=== PATIENT | male | born 1940 | race Caucasian/White ===

== ENCOUNTER 2019-12-23 16:21 | Outpatient (CLI) | payer OTHER, SELFPAY | END 2019-12-23 16:22 | disposition home or self-care (01) | LOC: SPT 16:21 | PROVIDERS: PCP Family Medicine; Visit Provider Podiatrist Foot & Ankle Surgery | DX: Z46.89 Encounter for fitting and adjustment of other specified devices (principal); G57.60 Lesion of plantar nerve, unspecified lower limb | CPT/HCPCS: L3100 ==

== ENCOUNTER → 2020-04-07 13:02 | Outpatient (BNVA) | payer OTHER, SELFPAY | PROVIDERS: PCP Family Medicine; Visit Provider Podiatrist Foot & Ankle Surgery | DX: G57.61 Lesion of plantar nerve, right lower limb (principal); M77.31 Calcaneal spur, right foot | CPT/HCPCS: 73630 ==

== ENCOUNTER 2021-01-11 09:26 | Outpatient (CLI) | payer OTHER, SELFPAY ==
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
== END 2021-01-11 09:27 | disposition home or self-care (01) ==
LOC: RADWPI 09:30
PROVIDERS: PCP Family Medicine; Visit Provider Podiatrist Foot & Ankle Surgery
DX: S00.85XA Superficial foreign body of other part of head, initial encounter (principal); X58.XXXA Exposure to other specified factors, initial encounter
CPT/HCPCS: 70030

== ENCOUNTER → 2021-01-19 13:22 | Outpatient (BNVA) | payer OTHER, SELFPAY | PROVIDERS: PCP Family Medicine; Visit Provider Orthopaedic Surgery | DX: M25.511 Pain in right shoulder (principal); M19.011 Primary osteoarthritis, right shoulder | CPT/HCPCS: 73030 ==

== ENCOUNTER 2021-01-19 14:23 | Outpatient (CLI) | payer OTHER, SELFPAY ==
--- NOTE | 2021-01-19 15:00 | CT_ITS ---
WS: [id number] CT RIGHT SHOULDER, NONCONTRAST. HISTORY: M25.511 - Pain in right shoulder Technique: All CT scans at [facility] use at least one of these dose optimization techniq ues: automated exposure control; mA and/or kV adjustment per patient size (includes targeted exams wh ere dose is matched to clinical indication); or iterative reconstruction. DLP: 1613.40 mGy-cm. COMPARISON: None available. Mild AC joint hypertrophy. Very slight impingement upon the anterior supraspinatus muscle. Severe eric rowing of the glenohumeral joint. Subchondral cystic changes and fissuring in the cortex of the humer al head and glenoid along with osteophytic ridging. Large subchondral cystic changes in the humeral h ead. Calcific density in the distal supraspinatus tendon. There is an additional 11 mm calcific densi ty near the axillary pouch. Large cystic mass with multiple septations and loculations medial to the glenohumeral joint measures 4.3 x 4.4 cm. This predominantly involves the subscapularis tendon. Mild atrophy of the supraspinatus muscle. Subcentimeter RIGHT thyroid nodules. Visualized RIGHT upper lung is clear. CT/CT shoulder RT wo con* [id number] IMPRESSION: 1. Severe degenerative changes to the glenohumeral joint with osteophytic ridg ing and loss of the cartilage. 2. Lobulated cystic mass associated with the distal subscapularis tendon. 3. Mild supraspinatus atrophy. 4. Mild AC joint arthritis. 5. Calcific tendinitis and an additional calcified loose body in the axillary pouch.
== END 2021-01-19 14:24 | disposition home or self-care (01) ==
LOC: RAD 14:25
PROVIDERS: PCP Family Medicine; Visit Provider Orthopaedic Surgery
DX: M75.31 Calcific tendinitis of right shoulder (principal); M13.811 Other specified arthritis, right shoulder; R22.31 Localized swelling, mass and lump, right upper limb
CPT/HCPCS: 73200

== ENCOUNTER → 2021-01-26 16:32 | Outpatient (BNVA) | payer OTHER, SELFPAY | PROVIDERS: PCP Family Medicine; Visit Provider Orthopaedic Surgery | DX: Z01.812 Encounter for preprocedural laboratory examination (principal); Z20.822 Contact with and (suspected) exposure to COVID-19 | CPT/HCPCS: 87635 ==

== ENCOUNTER → 2021-01-26 | Day surgery (SDC) | payer OTHER, SELFPAY | PROVIDERS: PCP Family Medicine; Visit Provider Orthopaedic Surgery | DX: Z01.818 Encounter for other preprocedural examination (principal) | CPT/HCPCS: 93005 ==

== ENCOUNTER 2021-02-01 16:29 | Observation (INO) | payer OTHER, SELFPAY ==
--- NOTE | 2021-01-26 09:38 | ECG_ITS ---
[facility] Test Date: 2021-01-26 Pat Name: Uri August Department: Room: Gender: Male City [employer]rier: : 1940 Requested By: Meghan Sanchez Order Number: [id number] Reading MD: BROCK FISHER Measurements Intervals [place] Rate: 65 P: 16 DC: 149 QRS: -1 QRSD: 117 T: 45 QT: 373 QTc: 389 Interpretive Statements SINUS RHYTHM POSSIBLE LATERAL MYOCARDIAL INFARCTION [30 ms Q WAVE IN I/aVL/V5/V6], OF INDETERMINATE AGE POSSIBLE INFERIOR MYOCARDIAL INFARCTION [30 ms Q WAVE IN II/aVF], OF INDETERMINATE AGE Compared to ECG 08/09/2019 14:03:14 Myocardial infarct finding now present Intraventricular conduction delay no longer present Electronically Signed On 01-26-2021 20:18:37 CDT by BROCK FISHER [id number]
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
[2021-02-01] VITALS (12 sets, daily range): BP systolic 92–131; BP diastolic 66–78; PULSE 69–95; RESP 13–20; TEMP 36.2–37.1; O2SAT 92–97
[2021-02-01] MEDS: gabapentin 300 mg Capsule PO (09:41)
[2021-02-01] MEDS: CELEcoxib 200 mg Capsule 400 MG PO (09:42)
[2021-02-01] MEDS: oxyCODONE 20 mg ER (12 HR) Tablet PO (09:51)
[2021-02-01] MEDS: sodium chloride 0.9% 1,000 ML 30 ML IV (10:05)
--- NOTE | 2021-02-01 11:00 | P.ANESUD_ITS ---
Pre-Anesthetic Update Pre-Anesthetic Assessment: Date of Surgery/Procedure: 02/01/21 Preop Reba gnosis: Osteoarthritis Right shoulder Proposed Procedure: Operation Date: 02/01/21 12:05 Proposed Procedures p Total Shoulder Arthroplasty Right 29972 M19.011(Right) - Rafal Brothers MD Any changes to Pre-Anesthetic Assessment?: No Last Intake: Intake Last Liquid Date 01/31/21 Last Liquid Time 18:00 Last Solid Date 01/31/21 Last Solid Time 18:00 Vitals: Temperature 98.1 F 02/01/21 09:31 Temperature Source Temporal Artery S can 02/01/21 09:31 Pulse Rate 69 02/01/21 09:31 Respiratory Rate 18 02/01/21 09:31 Blood Pressure 131/78 02/01/21 09:31 Blood Pressure Julia n 95 02/01/21 09:31 Pulse Oximetry 95 02/01/21 09:31 Oxygen Delivery Me thod 02/01/21 09:31 Exam: Pre-Anes Outpt Exam: alert, oriented x 3, clear to auscultation bilaterally and regular rate & rhythm Cardiac Studies: No Data to Display
--- NOTE | 2021-02-01 11:00 | ANES.PROC ---
Anesthesia Procedures Procedure/Date: 02/01/21 Nerve Block ^: Nerve Block 1: Main Anesthesia: general anesthesia Time Out Performed: Yes Consent: requested by attending/covering physician, from patient, risks and benefits reviewed and patient agrees to proceed Nerve block location: interscalene (R) Anesthesia monitors applied: pulse oximetry, EKG, BP cuff and oxygen Anesthetic Used: ropivicaine 0.5% and with decadron (3 mg) Amount of anesthesia used (mL): 29 Ultrasound used to: visualize and ID brachial plexus and visualize and ID interscalene groove Nerve Stimulator Used?: No Interscalene/Femoral BLK: 2 stimuplex 22 g needle used for position and inplane approach, visualize local anesthetic spread and no vascular puncture identified Injection: neg aspiration of heme and paresthesia +/- Patient Tolerated Procedure: well and no complications Complications: none
[2021-02-01] MEDS: ondansetron 2 mg/ML SDV 2 mL 4 MG IVP (12:25)
--- NOTE | 2021-02-01 12:31 | P.HP_ITS ---
Same Day Surgery H&P Indication for Procedure/HPI DATE OF PROCEDURE: February 01, 2021 CHIEF COMPLAINT/INDICATIONFOR SURGICAL PROCEDURE: Severe right shoulder pain secondary to osteoarthritis. PREOP DIAGNOSIS: Osteoarthritis Right shoulder PLANNED PROCEDRUE: Operation Date: 02/01/21 12:05 Proposed Procedures p Total Shoulder Arthroplasty Right 17666 M19.011(Right) - Rafal Brothers MD Medications/Allergies* Home Medications Medication Instructions Recorded Confirmed Type finasteride 5 mg tablet 5 mg PO DAILY 11/30/20 01/26/21 History multivitamin 1 tab PO DAILY 11/30/20 01/26/21 History trospium 20 mg tablet 20 mg PO BID 11/30/20 01/26/21 History cyanocobalamin (vitamin B-12) 6,000 mcg PO EVERY OTHER DAY 01/26/21 01/26/21 History [Vitamin B-12] omega-3 fatty acids [Fish Oil] 2 cap PO DAILY 01/26/21 01/26/21 History tamsulosin 0.8 mg PO DAILY 01/26/21 01/26/21 History Allergies/Adverse Reactions Allergy/AdvReac Type Severity Reaction Status Date / Time Tetracyclic Antidepressants Allergy Severe Unconscious Verified 01/19/21 13:14 penicillin G Allergy Intermediate ALGY-Rash Verified 01/19/21 13:14 morphine AdvReac Severe ADR/ALGY-Pa Verified 01/19/21 13:14 lpitations Current Medications: Generic Name Dose Route Start Last Admin Trade Name Freq PRN Reason Stop Dose Admin Sodium Chloride 1,000 mls @ 30 mls/hr 02/01/21 09:30 02/01/21 10:05 Sodium Chloride 0.9% IV 02/02/21 09:29 30 mls/hr .Q24H SUE Administration Ondansetron HCl 4 mg 02/01/21 09:23 02/01/21 12:25 Ondansetron 2 Mg/Ml Sdv 2 Ml IVP 4 mg Q5M PRN Administration NAUSEA AND VOMITING Pertinent History/Comorbid Conditions* Medical History (Updated 01/19/21 @ 13:55 by Rafal Brothers MD) Benign neoplasm Luke's neuroma Ocular hypertension Vesicular foot eczema Social History Smoking and tobacco status: never smoked Alcohol intake: never Pertinent Exam Findings alert, oriented x 3, clear to auscultation bilaterally, regular rate & rhythm and operative site marked Recommendations Surgery/Procedure today Coding Level of Care Code Acute [employer] for Kassandra Skinner
--- NOTE | 2021-02-01 16:01 | P.OP_ITS ---
Operative Report Date of procedure: February 01, 2021 Pre-op Diagnosis: Osteoarthritis Right shoulder Post-op diagnosis: same Post-op Findings: Same Procedure Done: Right total shoulder arthroplasty Pathology: none sent Surgeon: Rafal Brothers Anesthesia: General and Nerve Block (Interscalene block) Estimated blood loss (mL): 400 Complications: None Findings: Patient had severe degenerative change of the glenohumeral joint. He had inferior tilt of the glenoid but no significant central or posterior neck bone loss Condition: stable Disposition: PACU Procedure: An intrascalene blocks provided the holding area. The patient was taken to the operating room and given a general anesthesia. They were given 2 g of Ancef.. Positioned in beachchair position with the arm in arm bill. A timeout was performed. A 8 cm long incision was made over the deltopectoral groove and dissection carried out with a scalpel blade to the deltopectoral interval. The cephalic vein was identified and retracted laterally. Digital dissection was accomplished to free lesions beneath the deltoid and beneath the coracobrachialis musculature. A small/medium Wojciech sleeve was placed beneath the deltoid and pectoralis major tendon. The biceps tendon was identified and dissection traced proximally to the bicipital groove. Utilizing cautery the subscapularis and anterior capsule was released anteriorly in full-thickness and freed distally at the level of the anterior humeral circumflex vessels. The glenohumeral joint include was externally rotated and dislocated. In accordance with our preoperative plan a neck cut was made in the angle of approximately 37.5 degrees degrees in 30 degrees of retroversion. Capsule was released from the inferior and posterior glenoid. A canal finder was used to find the canal and sequential broaching was accomplished until rotational stability was encountered with a stem of size 3B, a calcar protector plate was applied. The humeral head was then retracted posteriorly and inferiorly. Utilizing electrocautery labral and biceps remnants were excised circumferentially. The centering guide was used to place the central guidepin and the glenoid ream down to sclerotic bone. The 40 mm glenoid provided satisfactory coverage. the baseplate was prepared with the central and 3 peripheral holes. The drill holes were soaked in epinephrine solution. Peripheral peg holes were filled with cement and the final 40 mmCortiloc glenoid glenoid component was placed. A tr ial reduction was performed with the 51x17 low 1.5 mm offset head and 3B stem with excellent purchase and the final components were was press-fit into place. The shoulder was reduced and found to be stable. The subscap was secured with a 2 locking Ultratape sutures exiting in the dorsal aspect of the tendon. The lesser tuberosity was debrided down to trabecular bone. The shoulder was irrigated with saline and gentamicin solution. 3 drill holes were made in the bicipital tuberosityfrom proximal to distal. The most superior suture was passed through the top hole, middle sutures through the second hole, and the inferior suture through the inferior hole. The sutures were then passed through a small 4-hole Jay plate and secured with the elbow in 30 degrees of external rotation, rowing the rotator cuff over the lesser tuberosity. The lateral rotator interval was closed with ultra tape suture. The deltopectoral interval was closed with 0 Vicryl. The subcutaneous tissues were closed with 2- 0 Vicryl. The skin was closed with skin tony. Sterile dressings were applied. The patient was placed in a sling extubated and taken to recovery room in stable condition. Tornier Cortiloc glenoid size 40, Aequalis Flex Simplicity head 51 x 17, stem 3B
--- NOTE | 2021-02-01 16:20 | XRR_ITS ---
PROCEDURE INFORMATION: Exam: XR Right Shoulder Exam date and time: 02/01/2021 4:23 PM Age: 80 years old Clinical indication: Device placement; Other: Total shoulder; Prior surgery; Surgery date: Post-operative (0-2 days); Additional info: Postop total shoulder TECHNIQUE: Imaging protocol: XR Right shoulder. Views: 2 or more views. COMPARISON: CT shoulder RT wo con* [id number] 01/19/2021 3:24 PM FINDINGS: Bones/joints: Right shoulder prosthesis. No fracture or other acute osseous abnormality. No glenohumeral joint dislocation. The acromioclavicular joint is intact. Soft tissues: The soft tissues appear unremarkable. XR/XR shoulder RT min 2V* [id number] IMPRESSION: 1. Right shoulder prosthesis. 2. No acute abnormality demonstrated.
--- NOTE | 2021-02-01 17:47 | ANE.PACU2 ---
Inpatient post-anesthesia follow up: Airway intact: Yes Vital signs: Temperature 97.4 F Pulse Rate 88 Respiratory Rate 16 Blood Pressure 96/66 Pulse Oximetry 96 Oxygen Delivery Me thod Nasal Cannula Oxygen Flow Rate 2 Fraction of Inspir ed Oxygen Hydration adequate: Yes Nausea and vomiting: No Pain level: 1 Mental status: Baseline
[2021-02-01] MEDS: ceFAZolin 1,000 MG in sodium chloride 0.9% (plus) 50 ML 100 MG IV (21:40)
[2021-02-02] VITALS: BP 111/70; PULSE 88; RESP 18; TEMP 36.4; O2SAT 93
[2021-02-02] MEDS: sodium chloride 0.9% 1,000 ML 80 ML IV (02:03)
[2021-02-02] MEDS: ceFAZolin 1,000 MG in sodium chloride 0.9% (plus) 50 ML 100 MG IV (03:52)
[2021-02-02 04:00] VITALS: BP 105/63; PULSE 87; RESP 18; TEMP 37.2; O2SAT 100
[2021-02-02 07:30] VITALS: BP 105/70; PULSE 76; RESP 16; TEMP 36.3; O2SAT 94
[2021-02-02] MEDS: finasteride 5 mg Tablet PO (10:11)
[2021-02-02] MEDS: tamsulosin 0.4 mg Capsule 0.8 MG PO (10:11)
[2021-02-02] MEDS: omega-3 fatty acids 1,000 mg Capsule 2000 MG PO (10:12)
[2021-02-02] MEDS: aspirin 325 mg EC Tablet PO (10:12)
--- NOTE | 2021-02-02 11:05 | P.DS_ITS ---
Discharge Providers Date of Admission: 02/01/21 16:29 Date of Discharge: February 02, 2021 Attending Provider at Admission: Rafal Brothers MD Attending Provider at Discharge: Rafal Brothers MD Primary Care Provider: Rosas Morel Diagnoses at Discharge Discharge Diagnosis (1) Status post replacement of right shoulder joint: Status: Acute (2) Osteoarthritis of right shoulder: Status: Resolved Reason for Visit Reason for Visit: Primay osteoarthritis right shoulder Hospital Course Hospital Course The patient was admitted after an elective right total shoulder arthroplasty. He did wonderfully well. He required little pain medication. He was instructed in home exercises by occupational therapy. By the first postoperative day he was ready for discharge. Physical Exam Narrative: EXAM NARRATIVE: On the first postoperative day his incision was clean. He would fire his deltoid and his biceps. He had no distal neurovascular deficits Urinary Catheter Management^: Cramer: Cath Placed During This Visit: yes, but has since been removed by the nurse Urinary Catheter Date of Insertion: 02/01/21 Urinary Catheter Time of Insertion: 12:40 Date Urinary Catheter Removed: 02/01/21 Time Urinary Catheter Discontinued: 15:55 Discharge Data Data Completed and Pending: Completed Studies During Hospitalization Category Date Time Status XR shoulder RT mi n 2V* [id number] Routin e Exams 02/01/21 16:20 Completed Vitals: Last Vital Signs Temp 97.3 F L 02/02/21 07:30 Pulse 76 02/02/21 07:30 Resp 16 02/02/21 07:30 BP 105/70 02/02/21 07:30 Pulse Ox 94 02/02/21 07:30 Discharge Plan Discharge Patient Disposition: Home Condition: Stable Prescriptions: New Percocet 5-325 mg tablet 1 tab PO Q4H PRN (Reason: pain) Qty: 30 RF: 0 Continued (DME) toe alignment splint Qty: 1 RF: 0 trospium 20 mg tablet 20 mg PO BID RF: 0 finasteride 5 mg tablet 5 mg PO DAILY RF: 0 multivitamin Tablet 1 tab PO DAILY RF: 0 cyanocobalamin (vitamin B-12) [Vitamin B-12] 1,000 mcg Tablet 6,000 mcg PO EVERY OTHER DAY RF: 0 tamsulosin 0.4 mg Capsule 0.8 mg PO DAILY RF: 0 omega-3 fatty acids Capsule 2 cap PO DAILY RF: 0 Discharge Orders: Discharge Order (Routine); Ordered 02/02/21 Ordered By: Rafal Brothers Other Ambulatory Orders: Physical Therapy Eval and Treat Outpatient (EVERY OTHER DAY) Timeframe: [id number] Facility: [facility] - Location: Physical Therapy Ordered By: Rafal Brothers Physical Therapy Eval and Treat Outpatient (EVERY OTHER DAY) Timeframe: [id number] Facility: [facility] - Location: Physical Therapy Ordered By: Rafal Brothers Physical Therapy Eval and Treat Outpatient (EVERY OTHER DAY) Timeframe: 20210209 Facility: [facility] - Location: Physical Therapy Ordered By: Rafal Brothers Physical Therapy Eval and Treat Outpatient (EVERY OTHER DAY) Timeframe: [id number] Facility: [facility] - Location: Physical Therapy Ordered By: Rafal Brothers Physical Therapy Eval and Treat Outpatient (EVERY OTHER DAY) Timeframe: [id number] Facility: [facility] - Location: Physical Therapy Ordered By: Rafal Brothers Physical Therapy Eval and Treat Outpatient (EVERY OTHER DAY) Timeframe: [id number] Facility: [facility] - Location: Physical Therapy Ordered By: Rafal Brothers Referrals: Rafal Brothers MD [Physician] - 02/16/21 2:45 pm Discharge Diet: Advance as tolerated Discharge Activity: Limit activity as instructed Patient Instructions: Oxycodone/Acetaminophen (By mouth), Shoulder Arthroscopy (DC) Activity Restrictions/Additional Instructions: May remove shoulder dressing in 48 hours and apply light dressing as necessary May shower once incisions free of drainage. Leave arm in sling/immobilizer at all times except when showering or performing exercises. Avoiding any active use of the left shoulder. May remove sling for exercises Pendulum exercises to shoulder. We will begin passive range of motion with physical therapist. Active range of motion to elbow wrist and hand May apply cold compression as necessary for pain and swelling May take [id number] anti-inflammatories such as ibuprofen or Aleve with pain medications if you can tolerate these medications Discharge Attestations Time Spent in Discharge Care*: other Quality Metrics Clinical Quality Measures During this hospital stay, did patient experience: None Coding Level of Care Code Acute [facility] FW DC note Diagnoses Status post replacement of right shoulder joint Z96.611 Osteoarthritis of right shoulder M19.011
--- NOTE | 2021-02-02 11:19 | PC.NURSE ---
Discharge instructions given to patient, all questions answered. Patient states verbal understanding. IV catheter removed, tip intact. Patient discharged at this time in stable condition in the care of a friend.
[2021-02-02 11:22] VITALS: BP 105/70; PULSE 76; RESP 16; TEMP 36.3; O2SAT 94
== END 2021-02-02 11:22 | disposition home or self-care (01) ==
LOC: MEDSURG 16:30
PROVIDERS: Admitting Provider Orthopaedic Surgery; PCP Family Medicine; Visit Provider Orthopaedic Surgery
PROC: (CPT 23472; principal; 2021-02-01 11:45)
DX: M19.011 Primary osteoarthritis, right shoulder (principal)
CPT/HCPCS: 23472; 51702; 64415; 73030; 76942; 97110; 97161; 97165; C1776; G0378; J0690; J1100; J1200; J1580; J2370; J2405; J2704; J2765; J2795; J3010; J3490; J7030

== ENCOUNTER → 2021-03-10 14:17 | Outpatient (BNVA) | payer OTHER, SELFPAY | PROVIDERS: PCP Family Medicine; Visit Provider Orthopaedic Surgery | DX: Z96.611 Presence of right artificial shoulder joint (principal); Z47.1 Aftercare following joint replacement surgery | CPT/HCPCS: 73020; 73030 ==

== ENCOUNTER 2021-03-18 09:38 | Day surgery (SDC) | payer OTHER, SELFPAY ==
[2021-03-17 15:06] VITALS: BMI 31.0
[2021-03-18] VITALS (9 sets, daily range): BP systolic 99–133; BP diastolic 64–74; PULSE 73–80; RESP 12–18; TEMP 36.1–36.6; O2SAT 90–95
--- NOTE | 2021-03-18 10:10 | P.ANESASSM_ITS ---
Pre-Anesthetic Assessment Pre-Anesthetic Assessment: Height/Weight: Height 1.75 m Weight 95.254 kg Temp Pulse Resp BP Pulse Ox 97.4 F L 73 18 133/70 95 03/18/21 10:00 03/18/21 10:00 03/18/21 10:00 03/18/21 10:00 03/18/21 10:00 Preop Diagnosis: Subscapularis tear right shoulde Proposed Procedure: Operation Date: 03/18/21 11:35 Proposed Procedures p Exploration and open repair right shoulder rotator cuff 07714 Z96.611(Right) - Rafal Brothers MD Was Beta Zora taken within 24 hours: N/A Was Clonidine taken within 24 hours: N/A Last intake: Intake Last Liquid Date 03/17/21 Last Solid Date 03/17/21 Social: Social History: No alcohol and No tobacco Exam: Pre-Anes Outpt Exam: alert, oriented x 3, clear to auscultation bilaterally and regular rate & rhythm Airway: Submandibular: WNL Cervical ROM: WNL MP: 2 Pulmonary: Pulmonary: None reported CV/HEM: CV/HEM: None reported : Comments: BPH Metabolic: Metabolic: None reported Musc/skel: Musc/skel: OA/DJD Neuropsych: Neuropsych: None reported Anesthetic Plan: ASA status: 3 Anesthesia: General and Regional (specify below) Other: Consented for right interscalene nerve block. Risk of > 500 ml blood loss (7ml/kg in children): Yes, adequate IV access and fluids planned PFSH Anesthesia PFSH: Medical History Benign neoplasm Luke's neuroma Ocular hypertension Vesicular foot eczema Social History Smoking and tobacco status: never smoked Alcohol intake: never Data Anesthesia Cardiac Studies: No Data to Display
[2021-03-18] MEDS: midazolam 1 mg/mL INJ 5 ML 5 MG IVP (10:38)
[2021-03-18] MEDS: sodium chloride 0.9% 1,000 ML 30 ML IV (10:39)
--- NOTE | 2021-03-18 10:39 | ANES.PROC ---
Anesthesia Procedures Procedure/Date: 03/18/21 Nerve Block ^: Nerve Block 1: Main Anesthesia: general anesthesia Time Out Performed: Yes Consent: requested by attending/covering physician, risks and benefits reviewed and patient agrees to proceed Nerve block location: interscalene Anesthesia monitors applied: pulse oximetry and BP cuff Nerve block position: supine Anesthetic Used: lidocaine 1% and ropivicaine 0.5% Amount of anesthesia used (mL): 30 Nerve Stimulator Used?: Yes Interscalene/Femoral BLK: 2 stimuplex 22 g needle used for position and inplane approach Injection: neg aspiration of heme Patient Tolerated Procedure: well and no complications Complications: none
--- NOTE | 2021-03-18 11:23 | W.PM.OPSUD ---
Surgery/Procedure H&P Update DATE OF PROCEDURE: March 18, 2021 DATE H&P PERFORMED: 03/10/21 PREOP DIAGNOSIS: Subscapularis tear right shoulde PLANNED PROCEDURE: Operation Date: 03/18/21 11:35 Proposed Procedures p Exploration and open repair right shoulder rotator cuff 09286 Z96.611(Right) - Rafal Brothers MD
--- NOTE | 2021-03-18 13:42 | PM.OP ---
Operative Report Date of procedure: March 18, 2021 Pre-op Diagnosis: Subscapularis tear right sabase Post-op diagnosis: same Post-op Findings: Same Procedure Done: Open repair right subscapularis Implants: 4-hole Jay mini frag plate was reused from the previous operation Pathology: none sent Surgeon: Rafal Brothers Anesthesia: General Estimated blood loss (mL): 200 Complications: None Findings: The patient had a tear of his subscapularis with retraction of the tendon to the level of the glenoid but fortunately it was mobile after adhesions were removed from the conjoined tendon and anterior glenoid. Is a components appeared stable in satisfactory position Brief History: Mr. August recent see a right total shoulder 6 weeks ago with continued complaints of pain and weakness. On his 6-week follow-up he had a positive belly press test and displacement of his subscap suture plate. He had significant pain and functional loss in and was counseled to proceed with repair of the retorn subscapularis tendon Procedure: The patient was taken to the operating room and given a general anesthesia. He was positioned in the beachchair position with his anterior shoulder exposed. The shoulder is opened in line with its previous scar and dissection carried down through scar tissue in the deltopectoral interval. Adhesions of the subscapularis and all and lateral humerus and subscapularis were mandatory released. The pectoralis major was freed from the underlying conjoined tendon and 1 cm of distal pectoralis tendon release for better mobilization. The plate was identified retracted with the subscapularis tendon behind the conjoined tendon. Scar tissue was freed between the subscapularis and conjoined tendon and digital dissection used to free adhesions between the posterior subscapularis and glenoid. The rotator interval was released to allow better mobilization. The subscap tendon was affixed with 3 ultra tape sutures in a locking Krak?w fashion with all sutures exiting through the anterior tendon approximately 8 mm from the tendon edge. 4 drill holes were made from the bites in the bicipital groove and the sutures passed through these drill holes exiting the greater tuberosity. The suture was then passed through the 4 hole plate and secured tightly drawing the subscapularis over the lesser tuberosity. Additional Ultratape sutures were placed in the rotator interval to further reinforce the repair. The shoulder was irrigated with saline. The deltopectoral interval was closed with a running 0 Stratafix suture through the scar tissue at that interval. Subcutaneous tissues were closed with 2-0 Stratafix suture. The skin was closed with a running 4-0 Stratafix suture 0 dressings were applied. The patient was extubated and taken to the recovery room in stable condition.
== END 2021-03-18 15:20 | disposition home or self-care (01) ==
PROVIDERS: PCP Family Medicine; Visit Provider Orthopaedic Surgery
PROC: (CPT 23410; principal; 2021-03-18 11:35)
DX: S46.911A Strain of unspecified muscle, fascia and tendon at shoulder and upper arm level, right arm, initial encounter (principal); X58.XXXA Exposure to other specified factors, initial encounter; N40.0 Benign prostatic hyperplasia without lower urinary tract symptoms; M19.90 Unspecified osteoarthritis, unspecified site
CPT/HCPCS: 23410; 96374; J0690; J1100; J2250; J2405; J2704; J2710; J2795; J3010; J3490; J7030

== ENCOUNTER → 2021-04-28 14:03 | Outpatient (BNVA) | payer OTHER, SELFPAY | PROVIDERS: PCP Family Medicine; Visit Provider Orthopaedic Surgery | DX: Z48.89 Encounter for other specified surgical aftercare (principal); Z96.611 Presence of right artificial shoulder joint; M19.011 Primary osteoarthritis, right shoulder | CPT/HCPCS: 73030 ==

== ENCOUNTER → 2021-06-22 14:13 | Outpatient (BNVA) | payer OTHER, SELFPAY | PROVIDERS: PCP Family Medicine; Visit Provider Orthopaedic Surgery | DX: Z47.1 Aftercare following joint replacement surgery (principal); Z96.611 Presence of right artificial shoulder joint | CPT/HCPCS: 73030 ==